=== PATIENT | male | born 1970 | race African-American/Black ===

== ENCOUNTER 2022-02-20 10:06 | Emergency (ER) | payer OTHER ==
[2022-02-20 11:09] VITALS: TEMP 98
--- NOTE | 2022-02-20 15:10 | ED ---
Extremity Problem HPI <Willian Sue - Last Filed: 02/20/22 18:14> - General Source: patient, EMS Mode of arrival: EMS Limitations: no limitations <Leonor Dawn - Last Filed: 02/22/22 13:49> - General Chief complaint: Extremity Problem,Nontraumatic Stated complaint: poss DVT Time Seen by Provider: 02/20/22 11:05 - History of Present Illness Initial comments: 51-year-old male with past history of diabetes, hypertension, hyperlipidemia, alcohol abuse who presents to the emergency department with lower extremity swelling. Patient is coming from [place]. Has been hospitalized there since February 05. States that throughout his stay he has had increasing lower extremity edema. Admits to a previous history of this before. Does not take water pills. Denies history of congestive heart failure. Staff at [facility] completed laboratory studies which were unremarkable. Head patient transferred to the hospital for lower extremity Dopplers. Denies history of DVT or PE. Admits to pruritus of his lower extremities. No fevers. No other alleviating, precipitating or modifying factors (Leonor Dawn) - Related Data Home Medications Medication Instructions Recorded Confirmed Acetaminophen Tab [Tylenol] 650 mg PO Q4H PRN 02/20/22 02/20/22 Buprenorphine HCl/Naloxone HCl 1 film SL BID 02/20/22 02/20/22 [Suboxone 8 mg-2 mg Sl Film] Calcium/Magnesium/Zinc/Vitamin D3 1 tab PO TID PRN 02/20/22 02/20/22 334/134/5mg Chlorpheniramine Maleate 4 mg PO Q4H PRN 02/20/22 02/20/22 [Chlor-Trimeton] Docusate [Colace] 100 mg PO BID PRN 02/20/22 02/20/22 Hyoscyamine Sulfate [Levsin] 0.125 mg PO QID PRN 02/20/22 02/20/22 Ibuprofen [Motrin Ib] 600 mg PO Q6H PRN 02/20/22 02/20/22 Loperamide [Imodium] 4 mg PO QID PRN 02/20/22 02/20/22 Mag Hydrox/Aluminum Hyd/Simeth 30 ml PO Q4H PRN 02/20/22 02/20/22 [Mylanta Maximum Strength Liq] Magnesium Hydroxide [Milk of 2,400 mg PO BID PRN 02/20/22 02/20/22 Magnesia] Multivitamins, Thera [Multivitamin 1 tab PO DAILY 02/20/22 02/20/22 (formulary)] Simvastatin [Zocor] 20 mg PO HS 02/20/22 02/20/22 busPIRone HCl [Buspar] 10 mg PO TID 02/20/22 02/20/22 lisinopriL [Zestril] 20 mg PO DAILY 02/20/22 02/20/22 metFORMIN HCL [Glucophage] 500 mg PO DAILY 02/20/22 02/20/22 ondansetron HCL [Zofran] 8 mg PO Q6H PRN 02/20/22 02/20/22 Allergies Allergy/AdvReac Type Severity Reaction Status Date / Time ketorolac [From Toradol] Allergy Dyspnea Verified 02/20/22 17:57 metoclopramide [From Reglan] Allergy Dyspnea Verified 02/20/22 17:57 Review of Systems ROS Other: All systems not noted in ROS Statement are negative. <Willian Sue - Last Filed: 02/20/22 18:14> ROS Other: All systems not noted in ROS Statement are negative. <Leonor Dawn - Last Filed: 02/22/22 13:49> ROS Statement: Those systems with pertinent positive or pertinent negative responses have been documented in the HPI. Past Medical History Past Medical History: Diabetes Mellitus, Hyperlipidemia, Hypertension Additional Past Medical History / Comment(s): pancreatitis History of Any Multi-Drug Resistant Organisms: None Reported Additional Past Surgical History / Comment(s): pseudocyst removal Smoking Status: Current every day smoker Past Alcohol Use History: Daily Past Drug Use History: None Reported <Leonor Dawn - Last Filed: 02/22/22 13:49> General Exam Limitations: no limitations General appearance: alert, in no apparent distress Head exam: Present: atraumatic, normocephalic, normal inspection Eye exam: Present: normal appearance, PERRL, EOMI. Absent: scleral icterus, conjunctival injection, periorbital swelling ENT exam: Present: normal exam, mucous membranes moist Neck exam: Present: normal inspection. Absent: tenderness, meningismus, lymphadenopathy Respiratory exam: Present: normal lung sounds bilaterally. Absent: respiratory distress, wheezes, rales, rhonchi, stridor Cardiovascular Exam: Present: regular rate, normal rhythm, normal heart sounds. Absent: systolic murmur, diastolic murmur, rubs, gallop, clicks GI/Abdominal exam: Present: soft, normal bowel sounds. Absent: distended, tenderness, guarding, rebound, rigid Extremities exam: Present: full ROM, normal capillary refill, pedal edema (4+ lower extremity swelling). Absent: tenderness, joint swelling, calf tenderness Back exam: Present: normal inspection Neurological exam: Present: alert, oriented X3, CN II-XII intact Psychiatric exam: Present: normal affect, normal mood Skin exam: Present: warm, dry, intact, normal color. Absent: rash <Leonor Dawn - Last Filed: 02/22/22 13:49> Course Vital Signs 02/20/22 02/20/22 02/20/22 11:03 16:43 19:24 Temperature 98.0 F Pulse Rate 68 60 68 Respiratory 18 18 16 Rate Blood Pressure 126/83 102/62 110/68 O2 Sat by Pulse 100 96 98 Oximetry Medical Decision Making - Lab Data Result diagrams: 02/20/22 16:35 02/20/22 16:35 <Willian Sue - Last Filed: 02/20/22 18:14> - Lab Data Result diagrams: 02/20/22 16:35 02/20/22 16:35 <Leonor Dawn - Last Filed: 02/22/22 13:49> - Medical Decision Making Upon arrival patient is placed into [facility] . A thorough history and physical exam was performed. Laboratory studies are conducted. Ultrasound ordered of the lower extremities. Laboratory studies are pending at this time and therefore the patient will be signed out to Dr. Trent (Leonor Dawn) - Lab Data Lab Results 02/20/22 02/20/22 02/20/22 Range/Units 16:35 16:35 16:35 WBC 4.3 (3.8-10.6) k/uL RBC 3.14 L (4.30-5.90) m/uL Hgb 9.9 L (13.0-17.5) gm/dL Hct 30.5 L (39.0-53.0) % MCV 97.2 (80.0-100.0) fL MCH 31.5 (25.0-35.0) pg MCHC 32.4 (31.0-37.0) g/dL RDW 13.8 (11.5-15.5) % Plt Count 203 (150-450) k/uL MPV 8.6 Neutrophils % (Manual) 34 % Lymphocytes % (Manual) 60 % Monocytes % (Manual) 5 % Eosinophils % (Manual) 1 % Neutrophils # (Manual) 1.46 (1.3-7.7) k/uL Lymphocytes # (Manual) 2.58 (1.0-4.8) k/uL Monocytes # (Manual) 0.22 (0-1.0) k/uL Eosinophils # (Manual) 0.04 (0-0.7) k/uL Nucleated RBCs 0 (0-0) /100 WBC Manual Slide Review Performed PT 10.7 (9.0-12.0) sec INR 1.0 (<1.2) APTT 26.8 (22.0-30.0) sec Sodium 141 (137-145) mmol/L Potassium 4.7 (3.5-5.1) mmol/L Chloride 106 (98-107) mmol/L Carbon Dioxide 26 (22-30) mmol/L Anion Gap 9 mmol/L BUN 12 (9-20) mg/dL Creatinine 0.81 (0.66-1.25) mg/dL Est GFR (CKD-EPI)AfAm >90 (>60 ml/min/1.73 sqM) Est GFR (CKD-EPI)NonAf >90 (>60 ml/min/1.73 sqM) Glucose 86 (74-99) mg/dL Calcium 9.0 (8.4-10.2) mg/dL Magnesium 1.8 (1.6-2.3) mg/dL Total Bilirubin 0.3 (0.2-1.3) mg/dL AST 27 (17-59) U/L ALT 16 (4-49) U/L Alkaline Phosphatase 63 (38-126) U/L Troponin I (0.000-0.034) ng/mL NT-Pro-B Natriuret Pep pg/mL Total Protein 6.2 L (6.3-8.2) g/dL Albumin 3.8 (3.5-5.0) g/dL 02/20/22 02/20/22 Range/Units 16:35 16:35 WBC (3.8-10.6) k/uL RBC (4.30-5.90) m/uL Hgb (13.0-17.5) gm/dL Hct (39.0-53.0) % MCV (80.0-100.0) fL MCH (25.0-35.0) pg MCHC (31.0-37.0) g/dL RDW (11.5-15.5) % Plt Count (150-450) k/uL MPV Neutrophils % (Manual) % Lymphocytes % (Manual) % Monocytes % (Manual) % Eosinophils % (Manual) % Neutrophils # (Manual) (1.3-7.7) k/uL Lymphocytes # (Manual) (1.0-4.8) k/uL Monocytes # (Manual) (0-1.0) k/uL Eosinophils # (Manual) (0-0.7) k/uL Nucleated RBCs (0-0) /100 WBC Manual Slide Review PT (9.0-12.0) sec INR (<1.2) APTT (22.0-30.0) sec Sodium (137-145) mmol/L Potassium (3.5-5.1) mmol/L Chloride (98-107) mmol/L Carbon Dioxide (22-30) mmol/L Anion Gap mmol/L BUN (9-20) mg/dL Creatinine (0.66-1.25) mg/dL Est GFR (CKD-EPI)AfAm (>60 ml/min/1.73 sqM) Est GFR (CKD-EPI)NonAf (>60 ml/min/1.73 sqM) Glucose (74-99) mg/dL Calcium (8.4-10.2) mg/dL Magnesium (1.6-2.3) mg/dL Total Bilirubin (0.2-1.3) mg/dL AST (17-59) U/L ALT (4-49) U/L Alkaline Phosphatase (38-126) U/L Troponin I <0.012 (0.000-0.034) ng/mL NT-Pro-B Natriuret Pep 1890 pg/mL Total Protein (6.3-8.2) g/dL Albumin (3.5-5.0) g/dL - EKG Data EKG Comments: EKG demonstrates sinus rhythm with a rate of 68. WI interval 178. QRS 79. QTC of 394. No acute ST segment elevations or depressions (Leonor Dawn) Disposition Is patient prescribed a controlled substance at d/c from ED?: No <Willian Sue - Last Filed: 02/20/22 18:14> <Leonor Dawn - Last Filed: 02/22/22 13:49> Clinical Impression: Edema Disposition: HOME SELF-CARE Condition: Good Instructions (If sedation given, give patient instructions): Edema (ED) Referrals: Nonstaff,Physician [Primary Care Provider] - 1-2 days
--- NOTE | 2022-02-20 15:34 | US ---
EXAMINATION TYPE: US venous doppler duplex LE DATE OF EXAM: 02/20/2022 3:25 PM COMPARISON: NONE CLINICAL HISTORY: swelling. pain and edema bilateral legs for 5 days SIDE PERFORMED: bilateral TECHNIQUE: The lower extremity deep venous system is examined utilizing real time linear array sonog carlitos with graded compression, doppler sonography and color-flow sonography. VESSELS IMAGED: Common Femoral Vein Deep Femoral Vein Greater Saphenous Vein * Femoral Vein Popliteal Vein Small Saphenous Vein * Proximal Calf Veins (* superficial vessels) Right Leg: no evidence of DVT. multiple lymph nodes within groin, largest = 2.4cm Left Leg: no evidence of DVT. multiple lymph nodes within groin, largest = 2.8cm Grayscale, color doppler, spectral doppler imaging performed of the deep veins of the bilateral lower extremities. There is normal flow, compressibility, vascular waveforms. IMPRESSION: No ultrasound evidence for acute DVT in either lower extremity. Prominent but benign-elida earing lymph nodes in the bilateral groin marked on images saved. There is moderate subcutaneous eddi a noted beginning at the level of the knees bilaterally.
--- NOTE | 2022-02-20 16:50 | XR ---
EXAMINATION TYPE: XR chest 2V DATE OF EXAM: 02/20/2022 COMPARISON: NONE HISTORY: Short of breath TECHNIQUE: 2 views FINDINGS: There is some coarsening of interstitial markings. Heart size is normal. There are chest le ads. No pleural effusion. Bony thorax is intact IMPRESSION: Mild increased pulmonary interstitial density. No pulmonary consolidation or heart failur e.
[2022-02-20 16:54] LABS: ALT 16 U/L (4-49); AST 27 U/L (17-59); African American GFR (CKD) >90 (>60 ml/min/1.73 sqM); Albumin 3.8 g/dL (3.5-5.0); Alkaline Phosphatase 63 U/L (38-126); Anion Gap 9 mmol/L; Blood Urea Nitrogen 12 mg/dL (9-20); Carbon Dioxide 26 mmol/L (22-30); Chloride 106 mmol/L (98-107); Glucose 86 mg/dL (74-99); Magnesium 1.8 mg/dL (1.6-2.3); Non-African American GFR(CKD) >90 (>60 ml/min/1.73 sqM); Potassium 4.7 mmol/L (3.5-5.1); Sodium 141 mmol/L (137-145); Total Bilirubin 0.3 mg/dL (0.2-1.3); Total Protein 6.2 g/dL (6.3-8.2)
[2022-02-20 16:57] LABS: HCT 30.5 % (39.0-53.0); HGB 9.9 gm/dL (13.0-17.5); MCH 31.5 pg (25.0-35.0); MCHC 32.4 g/dL (31.0-37.0); MCV 97.2 fL (80.0-100.0); Mean Platelet Volume 8.6; Platelet Count 203 k/uL (150-450); RBC 3.14 m/uL (4.30-5.90); RDW 13.8 % (11.5-15.5); WBC 4.3 k/uL (3.8-10.6)
[2022-02-20 17:04] LABS: Partial Thromboplastin Time 26.8 sec (22.0-30.0); Prothrombin Time 10.7 sec (9.0-12.0)
[2022-02-20 17:20] LABS: Eosinophils # (M) 0.04 k/uL (0-0.7); Lymphocytes # (M) 2.58 k/uL (1.0-4.8); Monocytes # (M) 0.22 k/uL (0-1.0); Neutrophils # (M) 1.46 k/uL (1.3-7.7); Neutrophils % (M) 34 %; Nucleated Red Blood Cells 0 /100 WBC (0-0); Total Cells Counted 100
[2022-02-20 19:27] VITALS: BP 110/68; PULSE 68; RESP 16
== END 2022-02-20 19:24 | disposition home or self-care (01) ==
LOC: EC 10:06
DX: R22.40 Localized swelling, mass and lump, unspecified lower limb (principal); E11.9 Type 2 diabetes mellitus without complications; E78.5 Hyperlipidemia, unspecified; I10 Essential (primary) hypertension; F17.200 Nicotine dependence, unspecified, uncomplicated; Z88.6 Allergy status to analgesic agent; Z88.8 Allergy status to other drugs, medicaments and biological substances; Z79.84 Long term (current) use of oral hypoglycemic drugs; Z79.899 Other long term (current) drug therapy
CPT/HCPCS: 36415; 71046; 80053; 83735; 83880; 84484; 85025; 85610; 85730; 93005; 93970; 99284